=== PATIENT | female | born 1990 | race Caucasian/White ===

== ENCOUNTER 2021-09-04 13:59 | Outpatient (CLI) | payer BC ==
[2021-09-04 14:48] LABS: #Eosinphils 0.1 10x3/uL (0.0-0.5); #Monocytes 0.7 10x3/uL (0.0-1.1); #Neutrophils 5.4 10x3/uL (1.5-8.4); %Basophils 0.3 % (0.0-2.0); %Eosinophils 0.7 % (0.0-6.0); %Lymphocytes 28.9 % (18.0-47.0); %Monocytes 7.5 % (0.0-10.0); %Neutrophils 62.4 % (40.0-75.0); Hemoglobin 12.9 g/dL (12.0-15.5); Mean Corpuscular HGB CONC 34.3 g/dL (32.0-36.0); Mean Corpuscular Hemoglobin 31.2 pg (27.0-33.0); Mean Platelet Volume 9.7 fl (7.4-10.4); Platelet Count 330 10x3/uL (150-450); RBC Distribution Width 12.3 % (11.5-14.5); Red Blood Cell (RBC) Count 4.13 10x6/uL (3.90-5.03); White Blood Cell (WBC) Count 8.7 10x3/uL (3.5-10.5)
[2021-09-04 14:57] LABS: BHCG - Serum Negative (NEGATIVE); Pregs Control Background? CLEAR/WHITE (CLR/WHITE); Pregs Control Bar Appear? YES (CONTROL BAR)
[2021-09-04 15:06] LABS: ALT (SGPT) 11 U/L (8-55); AST (SGOT) 12 U/L (5-34); Albumin 4.3 g/dL (3.5-5.0); Alkaline Phosphatase 56 U/L (40-110); Anion Gap 12 mmol/L (10-20); BUN (Urea Nitrogen) 9 mg/dL (7.0-18.7); Bilirubin, Total 0.8 mg/dL (0.2-1.2); Calc. Creatinine Clearance 0 mL/min (70-130); Calcium 9.1 mg/dL (7.8-10.44); Carbon Dioxide 25 mmol/L (22-29); Chloride 106 mmol/L (98-107); Globulin 2.5 g/dL (2.4-3.5); Glucose 92 mg/dL (70-105); Potassium 3.7 mmol/L (3.5-5.1); Protein, Total 6.8 g/dL (6.0-8.3); Sodium 139 mmol/L (136-145)
[2021-09-05 15:47] LABS: SARS-CoV-2 PCR by NAA Not Detected (NotDetected)
== END 2021-09-04 14:00 | disposition home or self-care (01) ==
LOC: LABBT 13:59
PROVIDERS: ATTEND Surgery
DX: Z01.812 Encounter for preprocedural laboratory examination (principal); K80.20 Calculus of gallbladder without cholecystitis without obstruction; Z20.822 Contact with and (suspected) exposure to COVID-19
CPT/HCPCS: 80053; 84703; 85025; U0003; U0005

== ENCOUNTER 2021-09-08 10:11 | Day surgery (SDC) | payer BC ==
[2021-09-04 11:19] VITALS: BMI 22.8
[2021-09-08] MEDS ORDERED: Acetaminophen 500 MG TAB ONE (10:40)
[2021-09-08] MEDS ORDERED: Lidocaine 1% MPF 2 ML VIAL ONE (10:48)
[2021-09-08] MEDS ORDERED: Lidocaine 2% Jelly 5 ML TUBE ONE (11:30)
[2021-09-08] MEDS ORDERED: HYDROmorphone 0.5 MG/0.5 ML SYRINGE ONE (11:30)
[2021-09-08] MEDS ORDERED: Midazolam HCl 2 mg/2 ml Vial ONE ×2 (11:30→12:00)
[2021-09-08] MEDS ORDERED: fentaNYL Citrate/PF 100 MCG/2 ML SYRINGE ONE (11:30)
[2021-09-08] MEDS ORDERED: Bupivacaine 0.25% 10 ML VIAL ONE (11:37)
[2021-09-08] MEDS ORDERED: EPINEPHrine 1 MG/ML AMP ONE (11:37)
[2021-09-08] MEDS ORDERED: Iopamidol 15 ML ONE (11:38)
[2021-09-08] MEDS ORDERED: ceFAZolin (BATCH) 2 GM/100 ML BAG ONE (11:59)
[2021-09-08] MEDS ORDERED: Rocuronium Bromide 10 MG/ML (10ML VIAL) ONE (12:08)
[2021-09-08] MEDS ORDERED: PROPOFOL 200 MG/20 ML VIAL ONE (12:08)
[2021-09-08] MEDS ORDERED: Dexamethasone 20 MG/5 ML VIAL ONE (12:08)
[2021-09-08] MEDS ORDERED: Lidocaine 1% PF 5 ML VIAL ONE (12:08)
[2021-09-08] MEDS ORDERED: Glycopyrrolate 0.2 MG/ML 5 ML SYRINGE ONE (12:08)
[2021-09-08] MEDS ORDERED: Ondansetron PF 4 MG/2 ML Vial ONE (12:08)
[2021-09-08] MEDS ORDERED: Fentanyl 100 MCG/2 ML VIAL ONE (13:47)
[2021-09-08] MEDS ORDERED: HYDROcodone/Acetaminophen 5/325 mg Tablet ONE (14:32)
== END 2021-09-08 15:41 | disposition home or self-care (01) ==
LOC: SDC 10:11
PROVIDERS: ATTEND Surgery
PROC: 0FT44ZZ Resection of Gallbladder, Percutaneous Endoscopic Approach (ICD-10-PCS; principal; 2021-09-08)
PROC: BF101ZZ Fluoroscopy of Bile Ducts using Low Osmolar Contrast (ICD-10-PCS; principal; 2021-09-08)
DX: K80.10 Calculus of gallbladder with chronic cholecystitis without obstruction (principal); K42.9 Umbilical hernia without obstruction or gangrene; K66.0 Peritoneal adhesions (postprocedural) (postinfection); R74.01 Elevation of levels of liver transaminase levels
CPT/HCPCS: 47532; 88304; C1713; J0171; J0690; J1100; J1170; J1610; J2250; J2405; J2704; J3010; Q9967; S0020